=== PATIENT | male | born 1985 | race Caucasian/White ===

== ENCOUNTER → 2019-03-22 | Outpatient (CLI) | payer OTHER ==
--- NOTE | 2019-03-22 12:04 | RAD ---
Lumbar spine, 3 views, 03/22/2019: HISTORY: Low back pain The lumbar vertebral heights and intervertebral disc spaces are well-maintained. No fracture or subluxation is evident. The paraspinous soft tissues are unremarkable. IMPRESSION: No significant abnormality is detected. Electronically signed by: Shawn Urena MD (03/22/2019 12:01 PM) [facility]
== END | disposition home or self-care (01) ==
LOC: RAD 11:00
PROVIDERS: ATTEND Surgery
DX: M54.5 Low back pain (principal)
CPT/HCPCS: 72100